=== PATIENT | female | born 1935 | race Caucasian/White ===

== ENCOUNTER 2022-01-29 16:12 | Inpatient (IN) | payer OTHER ==
[~2022-01-29] VITALS: Ht 167.6 cm; Wt 83.9 kg
--- NOTE | 2022-01-29 16:20 | NUR ---
"Plan to admit" per Dr Stewart, ER registration/admitting staff Marlene notified.
[2022-01-29] MEDS ORDERED: methylPREDNISolone SOD SUCC 125 MG/2 ML VIAL IV ONE (16:30)
[2022-01-29] MEDS ORDERED: IPRATROPIUM BROMIDE 0.5 MG/2.5 ML NEBU NEB ONE (16:30)
[2022-01-29] MEDS ORDERED: ALBUTEROL SULFATE 2.5 MG/3 ML NEBU NEB ONE (16:30)
[2022-01-29] MEDS ORDERED: ALBUTEROL SULFATE 2.5 MG/3 ML NEBU ONE (16:33)
[2022-01-29] MEDS ORDERED: IPRATROPIUM BROMIDE 0.5 MG/2.5 ML NEBU ONE (16:33)
[2022-01-29 16:43] LABS: HEMATOCRIT 42.9 % (31.2-41.9); MEAN CORPUSCULAR HEMOGLOBIN 33.4 uug (24.7-32.8); MEAN CORPUSCULAR VOLUME 99.6 fL (75.5-95.3); PLATELET COUNT (AUTO) 161 K/uL (179-408)
[2022-01-29 16:46] LABS: CARBON DIOXIDE 31 mmol/L (21-32); CHLORIDE 103 mmol/L (98-107); CREATININE 1.1 mg/dL (0.6-1.3); GLUCOSE 122 mg/dL (74-106); POTASSIUM 4.2 mmol/L (3.5-5.1); UREA NITROGEN, BLOOD 23 mg/dL (7-18)
[2022-01-29] MEDS ORDERED: APIX5TAB PO (16:50)
[2022-01-29] MEDS ORDERED: [UNRECOGNIZED DRUG - SUPPLY] EACHEYE (16:50)
[2022-01-29] MEDS ORDERED: FAMO-132 PO (16:50)
[2022-01-29] MEDS ORDERED: BUPR100T5 PO (16:50)
[2022-01-29] MEDS ORDERED: MULT-1045 PO (16:50)
[2022-01-29] MEDS ORDERED: METH500T4 PO (16:50)
[2022-01-29] MEDS ORDERED: DEXT15DR6 EACHEYE (16:50)
[2022-01-29] MEDS ORDERED: ASCO-420 PO (16:50)
[2022-01-29] MEDS ORDERED: methylPREDNISolone SOD SUCC 125 MG/2 ML VIAL ONE (16:50)
[2022-01-29] MEDS ORDERED: MELA5TAB PO (16:50)
[2022-01-29] MEDS ORDERED: CARB15DR12 OT (16:50)
[2022-01-29] MEDS ORDERED: ESCI10TA PO (16:50)
[2022-01-29] MEDS ORDERED: AZEL23SP BNOSTRILS (16:50)
[2022-01-29] MEDS ORDERED: LISI2.5T14 PO (16:50)
[2022-01-29] MEDS ORDERED: UBID1CAP54 PO (16:50)
[2022-01-29] MEDS ORDERED: [UNRECOGNIZED DRUG - OTHER] PO (16:50)
[2022-01-29] MEDS ORDERED: DILT-32 PO (16:50)
[2022-01-29] MEDS ORDERED: ACET-2154 PO (16:51)
[2022-01-29] MEDS ORDERED: LACT1CAP71 PO (16:51)
[2022-01-29] MEDS ORDERED: AMOX500C2 PO (16:51)
[2022-01-29] MEDS ORDERED: MIRA50TA PO (16:51)
[2022-01-29] MEDS ORDERED: ROSU20TA2 PO (16:51)
[2022-01-29] MEDS ORDERED: POTA-58 PO (16:51)
[2022-01-29] MEDS ORDERED: FLUT1BLS6 IH (16:51)
[2022-01-29] MEDS ORDERED: [UNRECOGNIZED DRUG - CODE] MM (16:51)
[2022-01-29] MEDS ORDERED: SODI650T PO (16:51)
[2022-01-29] MEDS ORDERED: ALPR0.255 PO (16:51)
[2022-01-29] MEDS ORDERED: METF-494 PO (16:51)
[2022-01-29] MEDS ORDERED: MV-M1TAB18 PO (16:51)
[2022-01-29] MEDS ORDERED: CYAN-51 PO (16:51)
[2022-01-29 16:59] LABS: ALANINE AMINOTRANSFERASE 39 U/L (14-59); ALKALINE PHOSPHATASE 57 U/L (50-136); ASPARTATE AMINOTRANSFERASE 39 U/L (15-37); BILIRUBIN,DIRECT < 0.1 mg/dL (0.0-0.2); BILIRUBIN,TOTAL 0.2 mg/dL (0.2-1.0); TOTAL PROTEIN, SERUM 6.9 g/dL (6.4-8.2)
[2022-01-29] MEDS ORDERED: BACL10TA PO (17:09)
--- NOTE | 2022-01-29 18:25 | NUR ---
Patient is resting comfortably ongurney with high gipson's position, pending EPIC hospitalist callback
--- NOTE | 2022-01-29 19:04 | NUR ---
Nursing SBAR given to JULIANNE Meek. Patient is waiting for available 3rd floor telemetry nurse & bed at this time.
--- NOTE | 2022-01-29 19:09 | NUR ---
Tiffani charger nurse TELE called. Patient will be transefered to room 301B
--- NOTE | 2022-01-29 19:40 | NUR ---
report given to April WHITAKER
[2022-01-29] MEDS ORDERED: HYDROCODONE/APAP 5-325MG TABLET PO PRN (19:45)
[2022-01-29] MEDS ORDERED: REMEDY ESSENTIAL ZINC PASTE 113 GM TP PRN (19:45)
[2022-01-29] MEDS ORDERED: ONDANSETRON 4 MG/2 ML VIAL IV PRN (19:45)
[2022-01-29] MEDS ORDERED: MAGNESIUM HYDROXIDE 30 ML LIQUID UDC PO PRN (19:45)
[2022-01-29] MEDS ORDERED: ACETAMINOPHEN 325 MG TABLET PO PRN (19:45)
[2022-01-29] MEDS ORDERED: DEXTROSE 50% 50 ML DISP.SYRIN IV PRN (19:45)
[2022-01-29] MEDS ORDERED: levoFLOXacin 750MG/D5W 750 MG in PREMIXED 1 EACH IV SCH ×2 (19:45→21:00)
--- NOTE | 2022-01-29 20:15 | NUR ---
Patient is able to tolerate food/fluids PO
[2022-01-29] MEDS: IPRATROPIUM BROMIDE 0.5 MG/2.5 ML NEBU NEB SCH (20:30)
[2022-01-29] MEDS: ALBUTEROL SULFATE 2.5 MG/3 ML NEBU NEB SCH (20:30)
--- NOTE | 2022-01-29 20:41 | NUR ---
report given to Madhu WHITAKER
[2022-01-29] MEDS ORDERED: ENOXAPARIN SODIUM 40 MG/0.4 ML DISP.SYRIN SQ SCH (21:00)
--- NOTE | 2022-01-29 21:13 | NUR ---
Pt. admitted to TELE room 301B , under care of Dr. Naun Fisher List completed Madhu RN aware of patient's arrival
[2022-01-29 21:30] VITALS: BP 124/88
[2022-01-29] MEDS: INSULIN REGULAR, HUMAN 300 UNIT/3 ML VIAL SQ PRN (21:36)
[2022-01-29] MEDS: BLOOD SUGAR DIAGNOSTIC 1 EACH STRIP VI SCH (22:16)
[2022-01-30] VITALS: BP 156/64
[2022-01-30] MEDS: methylPREDNISolone SOD SUCC 40 MG/ML VIAL IV SCH ×5 (00:22→21:47)
[2022-01-30] MEDS: ALBUTEROL SULFATE 2.5 MG/3 ML NEBU NEB SCH ×4 (00:58→19:38)
[2022-01-30] MEDS: IPRATROPIUM BROMIDE 0.5 MG/2.5 ML NEBU NEB SCH ×4 (00:59→19:38)
[2022-01-30 04:00] VITALS: BP 125/66
[2022-01-30] MEDS: PANTOPRAZOLE SODIUM 40 MG TABLET.DR PO SCH (06:09)
[2022-01-30] MEDS: BLOOD SUGAR DIAGNOSTIC 1 EACH STRIP VI SCH ×3 (06:32→18:10)
--- NOTE | 2022-01-30 07:18 | NUR ---
Patient rested well in between care; SOB on Exertion; assisted to meet hygiene needs; blood sugar as charted; needs attended; safety maintained; plan of care explained.
[2022-01-30 07:27] LABS: HEMATOCRIT 40.8 % (31.2-41.9); MEAN CORPUSCULAR HEMOGLOBIN 33.9 uug (24.7-32.8); MEAN CORPUSCULAR VOLUME 98.3 fL (75.5-95.3); PLATELET COUNT (AUTO) 154 K/uL (179-408)
--- NOTE | 2022-01-30 07:52 | NUR ---
Awake, alert, oriented x 3, sitting at the edge of bed. O2 at 2L/NC. Noted shortness of breath on exertion
[2022-01-30 08:09] LABS: CREATININE 0.9 mg/dL (0.6-1.3); MAGNESIUM 1.9 mg/dL (1.8-2.4); PHOSPHOROUS 3.2 mg/dL (2.5-4.9); POTASSIUM 4.5 mmol/L (3.5-5.1)
[2022-01-30] MEDS: INSULIN REGULAR, HUMAN 300 UNIT/3 ML VIAL SQ PRN ×3 (08:39→18:12)
[2022-01-30 11:03] VITALS: BP 151/65
--- NOTE | 2022-01-30 12:19 | NUR ---
BG 217, Insulin sliding scale given as ordered.
--- NOTE | 2022-01-30 15:03 | NUR ---
Assisted out of bed by PT, ambulated in the hallway with FWW and O2. Noted shortness of breath on exertion but O2 sat okay
[2022-01-30 15:08] VITALS: BP 168/84
--- NOTE | 2022-01-30 18:27 | NUR ---
O2 at 2L/NC maintained with O2 sat of 95%. Denies pain.
[2022-01-30] MEDS ORDERED: ALPRAZOLAM 0.5 MG TABLET PO PRN (18:30)
[2022-01-30] MEDS ORDERED: POLYVINYL ALCOHOL OPHT DROPS 15 ML BOTTLE EACHEYE PRN (18:45)
[2022-01-30] MEDS ORDERED: hydrALAZINE HCL 25 MG TABLET PO PRN (18:45)
[2022-01-30] MEDS: METFORMIN HCL 500 MG TABLET PO SCH (20:00)
[2022-01-30 20:03] VITALS: BP 155/89
[2022-01-30] MEDS: FLUTICASONE/VILANTEROL 1 EACH BLST.W.DEV INH SCH (21:00)
[2022-01-30] MEDS: CEFTRIAXONE 1 G in IV DEXTROSE 5% 50 ML IV SCH (21:44)
[2022-01-30] MEDS: ATORVASTATIN 40 MG TABLET PO SCH (21:46)
[2022-01-30] MEDS: MELATONIN 3 MG TABLET PO SCH (21:47)
[2022-01-30] MEDS: APIXABAN 5 MG TABLET PO SCH (21:56)
[2022-01-31] VITALS: BP 145/72
[2022-01-31] MEDS: ALBUTEROL SULFATE 2.5 MG/3 ML NEBU NEB SCH ×4 (02:19→19:25)
[2022-01-31] MEDS: IPRATROPIUM BROMIDE 0.5 MG/2.5 ML NEBU NEB SCH ×4 (02:19→19:25)
[2022-01-31 04:00] VITALS: BP 132/76
[2022-01-31 06:28] LABS: HEMATOCRIT 40.9 % (31.2-41.9); MEAN CORPUSCULAR HEMOGLOBIN 33.7 uug (24.7-32.8); MEAN CORPUSCULAR VOLUME 99.3 fL (75.5-95.3); PLATELET COUNT (AUTO) 182 K/uL (179-408)
[2022-01-31 07:04] LABS: THYROID STIMULATING HORMONE 0.206 mIU/mL (0.358-3.740)
[2022-01-31] MEDS: methylPREDNISolone SOD SUCC 40 MG/ML VIAL IV SCH ×3 (07:12→21:37)
[2022-01-31] MEDS: PANTOPRAZOLE SODIUM 40 MG TABLET.DR PO SCH (07:13)
[2022-01-31 07:27] LABS: BILIRUBIN,TOTAL 0.2 mg/dL (0.2-1.0); CREATININE 0.9 mg/dL (0.6-1.3); PHOSPHOROUS 4.2 mg/dL (2.5-4.9); POTASSIUM 4.2 mmol/L (3.5-5.1); TOTAL PROTEIN, SERUM 6.7 g/dL (6.4-8.2)
[2022-01-31] MEDS: APIXABAN 5 MG TABLET PO SCH ×2 (08:27→21:39)
[2022-01-31] MEDS: ESCITALOPRAM OXALATE 10 MG TABLET PO SCH (08:30)
[2022-01-31] MEDS: CULTURELLE CAPSULE PO SCH (08:30)
[2022-01-31] MEDS: buPROPion SR 100 MG TABLET.SA PO SCH (08:30)
[2022-01-31] MEDS: LISINOPRIL 5 MG TABLET PO SCH (08:31)
[2022-01-31] MEDS: DILTIAZEM HCL CD 120 MG CAP.SR.24H PO SCH (08:31)
[2022-01-31] MEDS: MULTIVITAMINS,THERAPEUTIC TABLET PO SCH (08:31)
[2022-01-31] MEDS: METFORMIN HCL 500 MG TABLET PO SCH ×2 (08:31→17:01)
--- NOTE | 2022-01-31 10:01 | NUR ---
DOSE NOT GIVEN AT 2100 12/30/2021; PER PATIENT REPORT. RN VOIDED AND WILL PROCEED WITH NEXT DOSE SCHEDULED AT 1500 01/31/2022. PATIENT CURRENTLY NOT SHOWING SIGNS OF ACUTE RESPIRATORY DISTRESS.
[2022-01-31 11:51] VITALS: BP 137/71
[2022-01-31] MEDS: FLUTICASONE/VILANTEROL 1 EACH BLST.W.DEV INH SCH (14:02)
[2022-01-31 15:48] VITALS: BP 136/59
--- NOTE | 2022-01-31 19:39 | NUR ---
PATIENT IS ALERT & ORIENTED X4 AND SPEAKS MALTESE. TOLERATES PO AND IV MEDICATIONS & CARB CONTROL DIET WELL. VITAL SIGNS WITHIN NORMAL LIMITS. WITH ONE EXCEPTION AT 15:30PM, PATIENT O2 SAT AT 88%. PATIENT STATES: "IT IS NORMAL FOR ME, BECAUSE I HAVE COPD." RN NOTED. PATIENT TOLERATED RESPIRATORY TREATMENTS WELL. PATIENT REFUSED PHYSICAL THERAPY. RN EDUCATED PATIENT ON THE INCENTIVE SPIROMETER. PATIENT USED FREQUENTLY THROUGHOUT THE SHIFT. PATIENT HAD ONE BOWEL MOVEMENT AND VOIDED ADEQUATELY. FALL PRECAUTIONS OBSERVED; BED IN LOW AND BED ALARM ON. ENDORSED CARE TO JULIANNE PARKER.
[2022-01-31 20:00] VITALS: BP 149/69
[2022-01-31] MEDS: CEFTRIAXONE 1 G in IV DEXTROSE 5% 50 ML IV SCH (21:33)
[2022-01-31] MEDS: MELATONIN 3 MG TABLET PO SCH (21:34)
[2022-01-31] MEDS: ATORVASTATIN 40 MG TABLET PO SCH (21:34)
[2022-02-01] VITALS: BP 139/61
[2022-02-01] MEDS: ALBUTEROL SULFATE 2.5 MG/3 ML NEBU NEB SCH ×4 (00:46→19:50)
[2022-02-01] MEDS: IPRATROPIUM BROMIDE 0.5 MG/2.5 ML NEBU NEB SCH ×4 (00:46→19:50)
[2022-02-01 04:00] VITALS: BP 136/88
[2022-02-01] MEDS: methylPREDNISolone SOD SUCC 40 MG/ML VIAL IV SCH ×3 (06:34→22:00)
[2022-02-01] MEDS: PANTOPRAZOLE SODIUM 40 MG TABLET.DR PO SCH (06:34)
[2022-02-01] MEDS: FLUTICASONE/VILANTEROL 1 EACH BLST.W.DEV INH SCH (09:17)
[2022-02-01] MEDS: GUAIFENESIN/DEXTROMETHORPHAN 5 ML UDC PO PRN ×3 (09:17→23:33)
[2022-02-01] MEDS: CULTURELLE CAPSULE PO SCH (09:18)
[2022-02-01] MEDS: buPROPion SR 100 MG TABLET.SA PO SCH (09:18)
[2022-02-01] MEDS: LISINOPRIL 5 MG TABLET PO SCH (09:18)
[2022-02-01] MEDS: METFORMIN HCL 500 MG TABLET PO SCH ×2 (09:20→18:00)
[2022-02-01] MEDS: ESCITALOPRAM OXALATE 10 MG TABLET PO SCH (09:20)
[2022-02-01] MEDS: MULTIVITAMINS,THERAPEUTIC TABLET PO SCH (09:20)
[2022-02-01] MEDS: DILTIAZEM HCL CD 120 MG CAP.SR.24H PO SCH (09:20)
[2022-02-01] MEDS: APIXABAN 5 MG TABLET PO SCH ×2 (09:26→21:23)
[2022-02-01 11:42] VITALS: BP 132/75
[2022-02-01 15:49] VITALS: BP 120/71
[2022-02-01] MEDS ORDERED: FLUT1BLS IH (16:50)
[2022-02-01] MEDS ORDERED: GUAI5SYR PO (16:50)
[2022-02-01] MEDS ORDERED: ALBU8.5H8 INH (16:50)
[2022-02-01] MEDS ORDERED: METH4TAB3 PO (16:50)
--- NOTE | 2022-02-01 19:34 | NUR ---
PATIENT IS ALERT & ORIENTED X4, AND SPEAKS GERMAN. PATIENT TOLERATES CARB CONTROL DIET, IV & PO MEDICATIONS. PATIENT VOIDED ADEQUATELY. VITAL SIGNS WITHIN NORMAL BASELINE OF PATIENT. PATIENT ON 2LS OF OXYGEN AND TOLERATES RESPIRATORY TREATMENTS ORDERED. RN RECEIVED ORDERS FOR DISCHARGE. DISCHARGE PAPERWORK COMPLETED. VICKY, DAUGHTER, CALLED RN FOR UPDATE. RN PROVIDED UPDATE. DAUGHTER REQUESTED RN CALL [facility] FOR REPORT. RN CALLED [facility] AND GAVE REPORT TO LETTY MARTINEZ AT 18:30PM. ALL QUESTIONS ANSWERED. RN CALLED SCAN AT 18:45PM FOR PENDING PICK-UP. ELIZBAETH, THE BLOCK STACKER, NOTIFIED RN - PATIENT WAS SET FOR CAB COMING AT 19:20PM. RN QUESTIONED THE BLOCK STACKER "HOW THE PATIENT WILL GET OXYGEN?" BLOCK STACKER NOTIFIED ROUTING DEPARTMENT REGARDING THE CHANGE IN VEHICLES. CALL ENDS AFTER. RN REACHED OUT TODDLER TEACHER. TODDLER TEACHER ASKED RN TO SET UP [facility]. RN SET UP AMBULANCE PER REQUEST OF TODDLER TEACHER. AMBULANCE WAS SET TO ARRIVE AT 20:30PM-20:45PM. RN NOTIFIED TODDLER TEACHER ABOUT THE UPDATES. RN RECEIVED CALL FROM [facility]. [facility] NOTIFIED RN [facility] WILL BE HANDLING HER HOME HEALTH THERAPIES. TODDLER TEACHER REACHED OUT, NOTIFIED RN TO SET UP AMBULANCE WITH [facility]. RN ENDORSE CARE TO SENIOR MAINFRAME PROGRAMMER ANALYST HANK WHITAKER & CHARGE NURSE, MARTA.
[2022-02-01] MEDS: MELATONIN 3 MG TABLET PO SCH (21:21)
[2022-02-01] MEDS: ATORVASTATIN 40 MG TABLET PO SCH (21:21)
[2022-02-01] MEDS: CEFTRIAXONE 1 G in IV DEXTROSE 5% 50 ML IV SCH (21:23)
== END 2022-02-02 00:58 | disposition home health service (06) | DRG 189 ==
LOC: ER 16:12 → TELE3 20:30
PROVIDERS: ADMIT Internal Medicine; ATTEND Internal Medicine
DX: J96.01 Acute respiratory failure with hypoxia (principal); I50.31 Acute diastolic (congestive) heart failure; J44.1 Chronic obstructive pulmonary disease with (acute) exacerbation; I48.20 Chronic atrial fibrillation, unspecified; D68.2 Hereditary deficiency of other clotting factors; Z20.822 Contact with and (suspected) exposure to COVID-19; Z79.01 Long term (current) use of anticoagulants; D75.89 Other specified diseases of blood and blood-forming organs; E11.9 Type 2 diabetes mellitus without complications; E66.9 Obesity, unspecified; E78.5 Hyperlipidemia, unspecified; Z87.891 Personal history of nicotine dependence; F32.A Depression, unspecified; F41.9 Anxiety disorder, unspecified; Z79.84 Long term (current) use of oral hypoglycemic drugs; Z68.29 Body mass index [BMI] 29.0-29.9, adult; Z88.1 Allergy status to other antibiotic agents; I11.0 Hypertensive heart disease with heart failure
CPT/HCPCS: 36415; 71045; 83735; 84100; 84443; 84484; 85025; 93005; 94640; 97161; A4663; G0378; J0696; J1650; J1815; J1956; J2920; J2930; J3590